=== PATIENT | female | born 2000 | race Caucasian/White ===

== ENCOUNTER 2019-01-10 14:43 | Emergency (ER) | payer OTHER ==
[~2019-01-10] VITALS: Ht 160 cm; Wt 81.7 kg
[2019-01-10] MEDS ORDERED: BUTALB-APAP-CA1 EACH PO (15:07)
[2019-01-10 15:50] VITALS: BP 131/74
== END 2019-01-10 15:50 | disposition home or self-care (01) ==
LOC: ER 14:43
DX: G43.909 Migraine, unspecified, not intractable, without status migrainosus (principal); F17.210 Nicotine dependence, cigarettes, uncomplicated

== ENCOUNTER → 2019-03-26 | Outpatient (CLI) | payer OTHER ==
[~2019-03-26] MED LIST: BUTALB-APAP-CA1 EACH PO
[2019-03-26 09:10] LABS: HEMATOCRIT 41.4 % (37.0-47.0); HEMOGLOBIN 14.2 gm/dL (12.0-15.0); MCH 30.6 pg (26.0-34.0); MCHC 34.2 g/dL (28.0-37.0); MCV 89.4 fL (80.0-100.0); RBC 4.63 mil/uL (4.20-5.00); RDW 12.9 % (10.5-14.5); WBC 7.6 thou/uL (4.0-11.0)
[2019-03-26 09:26] LABS: ALBUMIN 3.6 g/dL (3.4-5.0); CALCIUM 8.6 mg/dL (8.5-10.1); CREATININE 0.7 mg/dL (0.6-1.0); POTASSIUM 4.2 mmol/L (3.5-5.1); TOTAL BILIRUBIN 0.2 mg/dL (<0.1-1.0); TOTAL PROTEIN 6.9 g/dL (6.4-8.2)
[2019-03-26 09:51] LABS: TSH 3.184 uIU/mL (0.358-3.740)
[2019-03-26 10:38] LABS: ESR (SEDRATE) 11 mm/hour (0-19)
== END ==
LOC: MRI 08:33
PROVIDERS: Psychiatry & Neurology Neuromuscular Medicine
DX: J34.1 Cyst and mucocele of nose and nasal sinus (principal)